=== PATIENT | female | born 1990 | race Caucasian/White ===

== ENCOUNTER 2016-10-21 23:56 | Emergency (ER) | payer OTHER ==
[~2016-10-21] VITALS: Ht 170.2 cm; Wt 70.3 kg
[~2016-10-21 23:56] MED LIST: ALBUTEROL0.09 MG/A1 INH; ATIVAN 0.5MG T0.5 MG PO; B-12-SL1000 MCG PO; B12 1MG PE1000 MCG/M; BLM PO; CIPRO 500MG TA500 MG PO; Colace PO; DIGESTIVE ADVANTAGE; DILAUDID2 MG PO; DOMPERIDONE1 POW PO; DURAGESIC100 MCG TOP; DURAGESIC100 MCG/HR EXT; HYDROCORTISONE2.51 EXT; HYDROMORPHONE HC2 MG PO; HYDROXYZINE HCL10 MG PO; K-DUR 10MEQ TA10 MEQ PO; LINZESS145 MCG PO; LO LOESTRIN FE1 TAB PO; MAALOX PLUS30 ML PO; METOPROLOL SUCC25 MG PO; MIRALAX17 GM PO; MONTELUKAST SOD10 MG PO; MORPHINE S10 MG/5 ML PO; Mylicon PO; ONDANSETRON HYDR4 MG PO; PAXIL10 MG/5 ML PO; PERCOCET 325 MG1 TA2 PO; PREDNISOLO15 MG/5 M2 PO; PREDNISONE 20MG20 MG PO; PRILOSEC 20MG C20 MG PO; PYRIDIUM100 MG PO; QUESTRAN4 GM/9 GM PO; RELISTOR 112 MG/0.6 SC; ROBITUSSIN W/CO10 ML PO; SYMBICORT 160/41 PUF INH; TAMIFLU 75MG75 MG PO; TESSALON PERLE100 MG PO; TRAZODONE50 MG PO; VITAB121000 PO; VITAMIN B1100 MG PO; VITAMIN B11000 MCG/M IM; VITAMIN D1000 IU PO; XOPENEX HFA45 MCG INH; ZITHROMAX Z-PA250 M1 PO; ZOFRAN 4MG ORALL4 MG PO; ZOFRAN ODT4 MG SL; [UNRECOGNIZED DRUG - OTHER] PO
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
[2016-10-22] MEDS ORDERED: HYCET 7.5 MG-3473 ML PO ×2 (02:17→03:31)
[2016-10-22 02:40] VITALS: BP 112/70
== END 2016-10-22 02:47 ==
LOC: ERH 23:56
DX: R42 Dizziness and giddiness (principal); M54.2 Cervicalgia
CPT/HCPCS: 96374; 96375; J1885; J2550; J3360

== ENCOUNTER 2017-01-31 17:11 | Emergency (ER) | payer OTHER ==
[~2017-01-31] VITALS: Ht 165.1 cm; Wt 56.7 kg
[~2017-01-31 17:11] MED LIST changes: +HYCET 7.5 MG-3473 ML PO
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
[2017-01-31 19:10] LABS: ABSOLUTE BASOPHIL COUNT 0 /CUMM (0.0-0.2); ABSOLUTE EOSINOPHIL COUNT 0 /CUMM (0.0-0.7); ABSOLUTE GRANULOCYTE CT 5.5 /CUMM (1.4-6.5); ABSOLUTE LYMPH COUNT 1.1 /CUMM (1.2-3.4); ABSOLUTE MONOCYTE COUNT 0.3 /CUMM (0.10-0.60); BASOPHIL % 0.5 % (0.0-2.0); EOSINOPHIL % 0.3 % (0-5); GRANULOCYTE % 78.8 % (42.2-75.2); HEMATOCRIT 44.6 % (37-47); MEAN CORPUSCULAR HGB 29.8 PG (27.0-31.0); MEAN CORPUSCULAR HGB CONC 33.1 G/DL (33.0-37.0); MEAN CORPUSCULAR VOLUME 90.2 FL (81.0-99.0); MEAN PLATELET VOLUME 7.5 FL (7.4-10.4); PLATELET COUNT 246 /CUMM (130-400); RBC DISTRIBUTION WIDTH 14.1 % (11.5-14.5); RED BLOOD CELL CT 4.94 /CUMM (4.20-5.40)
[2017-01-31] MEDS ORDERED: DILAUDID2 M1 PO (20:27)
[2017-01-31] MEDS ORDERED: ZOFRAN4 M2 PO (20:27)
[2017-01-31 20:46] VITALS: BP 122/75
== END 2017-01-31 20:47 ==
LOC: ERH 17:11
PROVIDERS: Physician Assistant Medical
DX: K85.90 Acute pancreatitis without necrosis or infection, unspecified (principal)
CPT/HCPCS: 81001; 81025; 96361; 96374; 96375; J2405